=== PATIENT | female | born 1995 | race Two or more races ===

== ENCOUNTER 2024-10-02 21:17 | Emergency (ER) | payer BC, MEDICAID, SELFPAY ==
[2024-10-02 21:21] VITALS: BMI 34.4
[2024-10-02 21:30] VITALS: BP 118/85; PULSE 85; RESP 16; TEMP 36.3; O2SAT 97
--- NOTE | 2024-10-02 21:37 | PD.EDVAGBL ---
ED OB Contraction Preg RMI/HPI General Chief complaint: Vaginal Bleeding Stated complaint: VAGINAL BLEEDING, 16WKS Time Seen by Provider: 10/02/24 21:22 Arrival date/time: 10/02/24 21:17 RME / HPI RME / HPI Narrative: Dr. Burciaga?s Main ED Evaluation: 28yo female who is 16 weeks gestation with no significant past medical history presents to the ED for a chief complaint of vaginal bleeding. Patient states she was using the restroom this afternoon when she noticed bright red spotting when she wiped. She states when she went back to the restroom, she noticed the spotting turned dark red, so she came in for evaluation. Patient states she initially felt pinching to her lower abdomen, but denies any abdominal pain. She denies any N/V, fever, chills, dysuria, back pain or any other associated symptoms. She denies any previous abdominal surgeries. Patient states she finished her 3rd dose of topical treatment for a yeast infection yesterday. Her OB is located in [place]. [facility]. Related Data Allergies Allergy/AdvReac Type Severity Reaction Status Date / Time No Known Allergies Allergy Verified 10/02/24 21:18 Review of Systems Review of Systems Systems Reviewed: All systems reviewed, normal except as documented Past Medical History Social History SMOKING STATUS: Never smoker ED Exam Narrative Physical exam: GENERAL APPEARANCE: alert and oriented x 4, well-developed, well-nourished, no acute distress VITALS: All vitals were reviewed and the pulse ox is 97% on room air, which is normal according to my interpretation. HEENT: Normocephalic, atraumatic; pupils equal, round, reactive to light; EOMI; mucous membranes pink, moist; oropharynx clear NECK: Supple LUNGS: CTABL; no wheezes, no rales, no rhonchi HEART: Regular rate, regular rhythm; normal S1, S2; no murmurs ABDOMEN: non distended; normal BS; soft, no tenderness, no guarding, no rebound; no masses, no organomegaly, no hernia BACK: no CVA tenderness EXTREMITIES: atraumatic; no edema NEUROLOGIC: awake; alert and oriented x4; cranial nerves II-XII grossly intact; no focal sensory or motor deficits PSYCHIATRIC: appropriate mood and affect SKIN: warm, dry, normal color; no rashes Course Quality Measures none Orders Category Date Time Status Rating Officer NOW Care 10/02/24 21:51 Active Continuous Pulse Oximetry NOW Care 10/02/24 21:51 Completed IV [Insert IV] NOW Care 10/02/24 21:51 Active US OB >= 14 weeks Fetus Stat Exams 10/02/24 21:53 Completed Beta HCG,Quantitative Stat Lab 10/02/24 22:08 Completed CBC Stat Lab 10/02/24 22:08 Completed CMP [Comprehensive Metabolic Panel] Stat Lab 10/02/24 22:08 Completed Drug Screen,Urine Stat Lab 10/02/24 22:15 Completed INR [Prothrombin Time with INR] Stat Lab 10/02/24 22:08 Completed Type and Screen Stat Lab 10/02/24 22:08 Completed Urinalysis, C/S if Indicated Stat Lab 10/02/24 22:14 Completed Vital Signs Vital signs: Vital Signs Temperature 97.4 F 10/02/24 21:30 Pulse Rate 85 10/02/24 21:30 Respiratory Rate 16 10/02/24 21:30 Blood Pressure 118/85 H 10/02/24 21:30 Pulse Oximetry (%) 97 10/02/24 21:30 Oxygen Delivery Method Room Air 10/02/24 21:30 Vaginal Bleeding MDM Narrative MDM Narrative: Scribe Attestation: 10/02/24 - Iris Tatum am scribing for and in the presence of Dr. Burciaga. 0013: Discussed results with the patient at bedside. Patient is asymptomatic at this time and is stable to be discharged home. I educated the patient to return to the ED if she has any worsening or persisting symptoms. She verbalized understanding. Patient data External records reviewed:: [facility] previous records (Per chart review, patient has no previous ED visits or admissions to this facility.) Clinical information provided by:: patient Social determinants that could affect healthcare access:: none Patient has the following chronic illnesses:: none How is presenting disease/condition affected by chronic disease/condition?: no chronic disease Evaluation data The following diagnostics were reviewed and interpreted by me:: lab results and radiology exam(s) Lab and/or radiology exams considered but not ordered:: none Interpretation Summary: CBC is normal, PT and INR are normal, [place] [address], UA is unremarkable, UDS is negative, according to my interpretation. [facility] Report Signed Patient: KAITLYN TAYLOR. Record#: [id number] Birthdate: 1995 Age/Sex: 28 / F Location: [facility] Attending Dr: Ordering Physician: Norberto Burciaga MD Date of Service: 10/02/24 Procedure(s): US OB >= 14 weeks Fetus Accession Number(s): [id number] cc: Arron Delvalle MD; Norberto Burciaga MD~ Examination: Complete OB ultrasound greater than 14 weeks Date and time of exam: October 02, 2024 10:58 PM INDICATIONS: Vaginal bleeding today Findings: Viable intrauterine single fetus with single amniotic sac presentation transverse head maternal left Cardiac motion 141 BPM Placenta anterior grade 0 Umbilical cord insertion seen Cervix closed Right ovary 3.2 cm arterial flow Left ovary 3.2 cm arterial flow. Amniotic fluid adequate Composite estimated gestational age based on BPD, head circumference, abdominal circumference, femur length is 16 weeks 0 days Estimated weight 139 g. Survey of intracranial anatomy, spinal anatomy, abdominal anatomy, four-chamber heart performed with no abnormalities identified. Impression: Viable intrauterine gestation in transverse presentation. Dictated By: Arron Delvalle MD Signed By: <Electronically signed by Arron Delvalle MD in [place]> 10/02/24 3848 Medications / Prescriptions Medications or Prescriptions considered but not ordered:: none Medication administrations:: none Consultations Consultation(s) initiated? (list below): No Diagnosis Vaginal Bleeding Differential Diagnosis: threatened and other (inevitable miscarriage, demise) Most likely diagnosis given after review of the tests above:: see clinical impression below Admission Indicated Admission indicated?: not indicated Admission Request Was there a request for admission?: No Disposition Plan Disposition Plan: Discharge Discharge Attestation Discharge Attestation: The patient and all family members were given an opportunity to ask questions and understood the discharge instructions. Discharge instructions specifically effects, indications for sooner follow up or return to the emergency department, and the expected course of current diagnosis. Patient condition: Stable Discharge Plan Plan Patient Disposition: HOME (Self Care) Discharge Disposition comment: Stable for discharge home Patient condition on transfer: Stable Prescriptions/Referrals Referrals: Ernesto Khan MD [Primary Care Provider] - In 1 week Problem List Clinical Impression: Threatened Patient/Caregiver Discharge Instructions Discharge Activity: activity as tolerated Education Materials: ED Possible Miscarriage ... Additional Instructions: Please return to the emergency department if you have any worsening or any further medical problems and we will help you. Otherwise you should follow-up with your primary [facility] doctor within the next several days. You will need to have bedrest and pelvic rest. That means mostly staying in bed and certainly not working at all or lifting heavy objects. Also pelvic rest which means nothing goes into the vagina. No tampons and no intercourse. Print Language: Vietnamese Stand Alone Forms: [facility] Award Info., Patient Portal Info Letter
--- NOTE | 2024-10-02 21:53 | XR_ITS ---
Examination: Complete OB ultrasound greater than 14 weeks Date and time of exam: October 02, 2024 10:58 PM INDICATIONS: Vaginal bleeding today Findings: Viable intrauterine single fetus with single amniotic sac presentation transverse head maternal left Cardiac motion 141 BPM Placenta anterior grade 0 Umbilical cord insertion seen Cervix closed Right ovary 3.2 cm arterial flow Left ovary 3.2 cm arterial flow. Amniotic fluid adequate Composite estimated gestational age based on BPD, head circumference, abdominal circumference, femur length is 16 weeks 0 days Estimated weight 139 g. Survey of intracranial anatomy, spinal anatomy, abdominal anatomy, four-chamber heart performed with no abnormalities identified. Impression: Viable intrauterine gestation in transverse presentation.
[2024-10-02 22:12] VITALS: PULSE 92
[2024-10-02 22:20] LABS: Basophils % (Auto) 0 % (0-2.5); Eosinophils # (Auto) 0.2 Thou/mm3 (0.0-0.5); Eosinophils % (Auto) 2 % (0-10); Hematocrit 32.7 % (36.0-46.0); Immature Granulocytes % (Auto) 0 % (0-0); Immature Granulocytes Auto 0.03 Thou/mm3 (0.00-0.00); Lymphocytes # (Auto) 2.6 Thou/mm3 (1.0-4.8); Lymphocytes % (Auto) 26 % (10-50); Mean Corpuscular HGB Conc 36.7 g/dl (31.0-37.0); Mean Corpuscular Hemoglobin 29.9 pg (25.0-35.0); Mean Corpuscular Volume 82 fL (80-100); Monocytes # (Auto) 0.8 Thou/mm3 (0.0-0.8); Monocytes % (Auto) 8 % (0-12); Neutrophils # (Auto) 6.4 Thou/mm3 (1.8-7.7); Neutrophils % (Auto) 64 % (37-80); Nucleated Red Blood Cell % 0 /100 WBC (0); Platelet Count 293 Thou/mm3 (140-440); RDW Standard Deviation 39.1 fL (36.4-46.3); Red Blood Count 4.01 Miln/mm3 (4.00-5.20); White Blood Count 9.9 Thou/mm3 (3.6-11.0)
[2024-10-02 22:26] LABS: INR 1.1 (0.9-1.3); Prothrombin Time 11.9 Seconds (9.0-12.2)
[2024-10-02 22:28] LABS: Collection Type, Urine Clean Catch
[2024-10-02 22:41] LABS: Amphetamine/Methamp Scrn,U Negative (Negative); Barbiturate Screen,Urine Negative (Negative); Benzodiazepines Screen,Urine Negative (Negative); Benzoylecgonine Screen, Ur Negative (Negative); Fentanyl Screen,Urine Negative (Negative); Opiate Screen,Urine Negative (Negative); THC Screen,Urine Negative (Negative)
[2024-10-02 22:48] LABS: Alanine Aminotransferase < 7 U/L (10-49); Albumin, Serum 4.4 gm/dL (3.5-5.0); Albumin/Globulin Ratio 1.4 (1.2-2.2); Alkaline Phosphatase 64 U/L (46-116); Anion Gap 10 (7-16); Aspartate Amino Transferase 16 U/L (0-34); BUN/Creatinine Ratio 10 Ratio (12-20); Bilirubin,Total 0.2 mg/dL (0.3-1.2); Blood Urea Nitrogen < 5 mg/dL (9-23); Calcium 9.4 mg/dL (8.3-10.6); Calcium (Corrected) 9.4 mg/dL (8.5-10.1); Carbon Dioxide 23.2 mMol/L (20.0-31.0); Chloride 106 mMol/L (98-107); Creatinine (Component) 0.5 mg/dL (0.6-1.3); Estimated Creatinine Clearance 166.1 mL/min (>60); Globulin 3.1 gm/dL (2.3-3.5); Glucose 105 mg/dL (74-106); Osmolality,Calculated 274 (275-295); Potassium 3.5 mMol/L (3.4-5.1); Sodium 139 mMol/L (136-145); Total Protein 7.5 gm/dL (5.7-8.2); eGFR > 60 See Note
[2024-10-02 23:00] VITALS: BP 119/75; PULSE 86; RESP 16; TEMP 36.9; O2SAT 98
[2024-10-02 23:01] LABS: Amorphous Crystals,Urine Present (Absent); Bacteria,Urine Rare; Bilirubin,Urine Negative (Negative); Blood,Urine 3+ (Negative); Clarity,Urine Turbid (Clear/Hazy); Color,Urine Lt-Yellow (Lt Yel-Yel); Culture Indicated,Urine Not Indicated; Glucose, Urine Negative (Negative); Ketones,Urine Negative (Negative); Leukocyte Esterase,Urine Negative (Negative); Nitrite,Urine Negative (Negative); Protein,Urine Negative (Neg - Trace); RBC,Urine 3 /hpf (0-3); Specific Gravity,Urine 1.013 (1.001-1.035); Squamous Epithelial Cell,Urine 2 /hpf (0-5); Urobilinogen,Urine Negative mg/dL (0.0-1.0); WBC,Urine < 1 /hpf (0-5)
[2024-10-02 23:11] LABS: Beta HCG,Quantitative 48204 mIU/mL (<5.0)
[2024-10-03] VITALS: BP 104/67; PULSE 86; RESP 16; TEMP 36.9; O2SAT 98
== END 2024-10-03 00:25 | disposition home or self-care (01) ==
PROVIDERS: Emergency Provider Emergency Medicine; PCP Obstetrics & Gynecology
DX: O20.0 Threatened abortion (principal); Z3A.16 16 weeks gestation of pregnancy
CPT/HCPCS: 36415; 76805; 80053; 80307; 81001; 84702; 85025; 85610; 86850; 86900; 86901; 99284